=== PATIENT | female | born 1990 | race Hispanic/Latino ===

== ENCOUNTER 2020-07-03 10:25 | Emergency (ER) | payer SELFPAY ==
[2020-07-03 12:02] LABS: SARS-COV-2 RT PCR NEGATIVE (NEGATIVE)
--- NOTE | 2020-07-03 13:12 | EDPHYS ---
Physician Documentation [facility] Name: Lea Carter Age: 29 yrs Sex: Female : 1990 Arrival Date: 07/03/2020 Time: 10:28 Bed 14 Private MD: ED Physician Lan Nguyen HPI: 07/03 11:25 This 29 yrs old Female presents to ER via Ambulatory with complaints of r/o pm1 covid. 11:25 The patient or guardian reports cough, with no sputum, congestion, runny nose, and sore pm1 throat. Onset: The symptoms/episode began/occurred 3 day(s) ago. 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 Flu vaccine is not up to date. - Social history:: Smoking status: Patient denies any tobacco usage or history of. ROS: 11:25 Constitutional: Negative for fever, chills, and weight loss, Eyes: Negative for injury, pm1 pain, redness, and discharge. 11:25 Neck: Negative for injury, pain, and swelling. 11:25 Cardiovascular: Negative for chest pain, palpitations, and edema. 11:25 Abdomen/GI: Negative for abdominal pain, nausea, vomiting, diarrhea, and constipation, Back: Negative for injury and pain, MS/Extremity: Negative for injury and deformity, Skin: Negative for injury, rash, and discoloration, Neuro: Negative for headache, weakness, numbness, tingling, and seizure. 11:25 ENT: Positive for sore throat, runny nose, Negative for ear pain. 11:25 Respiratory: Positive for cough, Negative for shortness of breath, sputum production, wheezing. Exam: 11:25 Constitutional: This is a well developed, well nourished patient who is awake, alert, pm1 and in no acute distress. Head/Face: Normocephalic, atraumatic. 11:25 Back: No spinal tenderness. No costovertebral tenderness. Full range of motion. Skin: Warm, dry with normal turgor. Normal color with no rashes, no lesions, and no evidence of cellulitis. MS/ Extremity: Pulses equal, no cyanosis. Neurovascular intact. Full, normal range of motion. 11:25 Eyes: Extraocular movements: intact throughout, Conjunctiva: no acute changes, Sclera: no acute changes, Lids and lashes: appear normal. 11:25 ENT: Posterior pharynx: Tonsils: bilaterally enlarged, with erythema, no exudate, no ulcerations, peritonsillar mass, is not appreciated, pooling of secretions, is not appreciated. 11:25 Cardiovascular: Rate: normal, Rhythm: regular, Pulses: no pulse deficits are appreciated. 11:25 Respiratory: Exam negative for acute changes, respiratory distress, shortness of breath, Breath sounds: are clear throughout. 11:25 Abdomen/GI: Inspection: abdomen appears normal, Palpation: abdomen is soft and non-tender, in all quadrants. 11:25 Neuro: Exam negative for acute changes, Orientation: is normal, Mentation: is normal, Motor: is normal, moves all fours. Vital Signs: 10:37 BP 126 / 76; Pulse 82; Resp 16 S; Temp 97.3(TE); Pulse Ox 99% on R/A; Weight 136.08 kg ca1 (R); Height 5 ft. 2 in. (157.48 cm) (R); Pain 0/10; 11:00 BP 137 / 68; Pulse 72; Resp 20; Pulse Ox 100% on R/A; kg 12:00 BP 127 / 83; Pulse 75; Resp 20; Pulse Ox 100% ; kg 12:26 BP 148 / 68; Pulse 67; Resp 20; Pulse Ox 100% ; kg 12:56 BP 119 / 62; Pulse 76; Resp 20; Pulse Ox 100% on R/A; kg 10:37 Body Mass Index 54.87 (136.08 kg, 157.48 cm) ca1 MDM: 10:41 Patient medically screened. pm1 13:10 Data reviewed: vital signs. Data interpreted: Pulse oximetry: on room air is 100 %. pm1 Interpretation: normal. Counseling: I had a detailed discussion with the patient and/or guardian regarding: the historical points, exam findings, and any diagnostic results supporting the discharge/admit diagnosis, lab results, the need for outpatient follow up, to return to the emergency department if symptoms worsen or persist or if there are any questions or concerns that arise at home. 07/03 10:41 Order name: Strep; Complete Time: 12:36 pm1 07/03 10:41 Order name: Droplet/Contact Precautions; Complete Time: 10:45 pm1 07/03 11:43 Order name: Throat Culture [facility] 07/03 12:02 Order name: COVID-19/FLU A+B; Complete Time: 12:36 [facility] 07/03 10:41 Order name: Labs collected and sent; Complete Time: 10:45 pm1 07/03 10:41 Order name: O2 Per Protocol; Complete Time: 10:45 pm1 Administered Medications: No medications were administered Disposition: 13:40 Co-signature as Attending Physician, Lan Nguyen MD. rn Disposition: 07/03/20 13:11 Discharged to Home. Impression: Acute upper respiratory infection, unspecified. - Condition is Stable. - Discharge Instructions: Upper Respiratory Infection, Adult. - Medication Reconciliation Form, Thank You Letter, Antibiotic Education, Prescription Opioid Use form. - Follow up: Emergency Department; When: As needed; Reason: Worsening of condition. Follow up: Private Physician; When: 2 - 3 days; Reason: Recheck today's complaints, Continuance of care, Re-evaluation by your physician. - Problem is new. - Symptoms have improved. Signatures: Dispatcher [employer] [facility] Lan Nguyen MD MD rn Jaswinder Bourne, RICCARDO POLE INCISOR OPERATOR pm1 Guerline Merida RN RN ca1 Graham, Kristen kg Corrections: (The following items were deleted from the chart) 11:05 10:42 CORONAVIRUS+MR.LAB.BRZ ordered. [facility] 11:06 10:42 Influenza Screen (A \T\ B)+BA.LAB.BRZ ordered. [facility] 13:37 13:11 07/03/2020 13:11 Discharged to Home. Impression: Acute upper respiratory kg infection, unspecified. Condition is Stable. Forms are Medication Reconciliation Form, Thank You Letter, Antibiotic Education, Prescription Opioid Use. Follow up: Emergency Department; When: As needed; Reason: Worsening of condition. Follow up: Private Physician; When: 2 - 3 days; Reason: Recheck today's complaints, Continuance of care, Re-evaluation by your physician. Problem is new. Symptoms have improved. pm1
--- NOTE | 2020-07-03 13:12 | ER ---
Nurse's Notes [facility] Name: Lea Carter Age: 29 yrs Sex: Female : 1990 Arrival Date: 07/03/2020 Time: 10:28 Bed 14 Private MD: Diagnosis: Acute upper respiratory infection, unspecified Presentation: 07/03 10:37 Chief complaint: Patient states: cough and congestion since Thursday. Denies fever. ca1 Coronavirus screen: Client denies travel out of the [place] in the last 14 days. congestion, cough unrelated to allergies, Client presents with at least one sign or symptom that may indicate coronavirus-19. Standard/surgical mask placed on the client. Provider contacted for isolation considerations. Ebola Screen: Patient negative for fever greater than or equal to 101.5 degrees Fahrenheit, and additional compatible Ebola Virus Disease symptoms Patient denies exposure to infectious person. Patient denies travel to an Ebola-affected area in the 21 days before illness onset. No symptoms or risks identified at this time. Initial Sepsis Screen: Does the patient meet any 2 criteria? No. Patient's initial sepsis screen is negative. Does the patient have a suspected source of infection? No. Patient's initial sepsis screen is negative. Risk Assessment: Do you want to hurt yourself or someone else? Patient reports no desire to harm self or others. Onset of symptoms was July 03, 2020. 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 Flu vaccine is not up to date. - Social history:: Smoking status: Patient denies any tobacco usage or history of. Screenin:23 Abuse screen: Denies threats or abuse. Denies injuries from another. Nutritional kg screening: No deficits noted. Tuberculosis screening: No symptoms or risk factors identified. Fall Risk None identified. No secondary diagnosis (0 pts). No IV (0 pts). Ambulatory Aid- Gait- Normal/Bed Rest/Wheelchair (0 pts) Mental Status- Oriented to own ability (0 pts). Total Howard Fall Scale indicates No Risk (0-24 pts). Assessment: 11:20 General: Appears in no apparent distress. Behavior is calm, cooperative, appropriate kg for age, quiet. Pain: Complains of pain in neck Pain does not radiate. Pain currently is 5 out of 10 on a pain scale. at worst was 8 out of 10 on a pain scale. level that patient reports is acceptable is 3 out of 10 on a pain scale. Quality of pain is described as burning, aching, Pain began Thursday. Neuro: No deficits noted. Level of Consciousness is awake, alert, obeys commands, Oriented to person, place, time, situation. Cardiovascular: No deficits noted. Heart tones S1 S2. Respiratory: Reports cough that is productive, pain with cough since Thursday Pain is 5 out of 10 on a pain scale. Airway is patent Respiratory effort is even, unlabored, relaxed, Respiratory pattern is regular, symmetrical, Breath sounds are clear bilaterally. GI: No deficits noted. GI: No signs and/or symptoms were reported involving the gastrointestinal system. : No deficits noted. No signs and/or symptoms were reported regarding the genitourinary system. EENT: Throat has enlarged tonsils Tonsils are touching. . Reports difficulty swallowing nasal congestion nasal discharge that is yellow that is watery pain when swallowing. Derm: No deficits noted. Musculoskeletal: No deficits noted. Vital Signs: 10:37 BP 126 / 76; Pulse 82; Resp 16 S; Temp 97.3(TE); Pulse Ox 99% on R/A; Weight 136.08 kg ca1 (R); Height 5 ft. 2 in. (157.48 cm) (R); Pain 0/10; 11:00 BP 137 / 68; Pulse 72; Resp 20; Pulse Ox 100% on R/A; kg 12:00 BP 127 / 83; Pulse 75; Resp 20; Pulse Ox 100% ; kg 12:26 BP 148 / 68; Pulse 67; Resp 20; Pulse Ox 100% ; kg 12:56 BP 119 / 62; Pulse 76; Resp 20; Pulse Ox 100% on R/A; kg 10:37 Body Mass Index 54.87 (136.08 kg, 157.48 cm) ca1 ED Course: 10:28 Patient arrived in ED. as 10:38 Triage completed. ca1 10:39 Arm band placed on right wrist. ca1 10:40 Jaswinder Bourne NP is PHCP. pm1 10:40 Lan Nguyen MD is Attending Physician. pm1 10:46 Strep Sent. ca1 10:48 Selma Vick is Primary Nurse. kg 11:24 Patient has correct armband on for positive identification. Bed in low position. Call kg light in reach. Side rails up X 1. 13:34 No provider procedures requiring assistance completed. Patient did not have IV access kg during this emergency room visit. Administered Medications: No medications were administered Outcome: 13:11 Discharge ordered by MD. pm1 13:34 Discharged to home ambulatory. kg 13:34 Condition: good 13:34 Discharge instructions given to patient, Instructed on discharge instructions, follow up and referral plans. Demonstrated understanding of instructions, follow-up care. 13:37 Patient left the ED. kg Signatures: Valeria Bolden as Jaswinder Bourne, RICCARDO SORTING COWS WORKER pm1 Guerline Merida RN RN ca1 Selma Vick kg Corrections: (The following items were deleted from the chart) 11:05 10:45 CORONAVIRUS+MR.LAB.BRZ drawn and sent. ca1 EDMS 11:06 10:46 Influenza Screen (A \T\ B)+BA.LAB.BRZ drawn and sent. ca1 EDMS
[2020-07-03 13:47] VITALS: TEMP 97.3
[2020-07-03 13:53] VITALS: O2SAT 100
[2020-07-03 14:05] VITALS: BP 119/62
== END 2020-07-03 13:37 | disposition home or self-care (01) ==
LOC: ER 10:25
DX: J06.9 Acute upper respiratory infection, unspecified (principal); Z20.822 Contact with and (suspected) exposure to COVID-19
CPT/HCPCS: 0240U; 87070; 87081; 99283